=== PATIENT | male | born 1950 | race Caucasian/White ===

== ENCOUNTER 2017-11-19 09:56 | Day surgery (SDC) | payer OTHER ==
[~2017-11-19] VITALS: Ht 180.3 cm; Wt 94.3 kg
[~2017-11-19 09:56] MED LIST: COUMADIN5 MG PO; DECADRON2 MG PO; DIOVAN160 MG PO; KEPPRA500 MG PO; MOTRIN600 MG PO; OMEGA 3-6-9 11200 MG PO
== END 2017-11-19 12:40 | disposition home or self-care (01) ==
LOC: CATH 09:56
PROC: 06H03DZ Insertion of Intraluminal Device into Inferior Vena Cava, Percutaneous Approach (ICD-10-PCS; principal; 2017-11-19)
DX: I82.519 Chronic embolism and thrombosis of unspecified femoral vein (principal); Z86.711 Personal history of pulmonary embolism; D49.6 Neoplasm of unspecified behavior of brain; I12.9 Hypertensive chronic kidney disease with stage 1 through stage 4 chronic kidney disease, or unspecified chronic kidney disease; N18.9 Chronic kidney disease, unspecified; E78.00 Pure hypercholesterolemia, unspecified; L93.0 Discoid lupus erythematosus; Z86.73 Personal history of transient ischemic attack (TIA), and cerebral infarction without residual deficits; Z79.01 Long term (current) use of anticoagulants
CPT/HCPCS: C1769; C1894; J0690; J1644; J2250; J3010

== ENCOUNTER 2017-11-22 22:14 | Inpatient (IN) | payer OTHER ==
[~2017-11-22] VITALS: Ht 180.3 cm; Wt 93.6 kg
[2017-11-23 06:58] VITALS: BP 168/78
[2017-11-23 07:52] LABS: INTER. NORMALIZED RATIO 1.1
[2017-11-23 20:18] VITALS: BP 144/81
[2017-11-23 21:00] VITALS: BP 127/69
[2017-11-23 22:00] VITALS: BP 138/71
[2017-11-23 23:00] VITALS: BP 139/69
[2017-11-24] VITALS (22 sets, daily range): BP systolic 127–160; BP diastolic 60–95
[2017-11-25] VITALS (15 sets, daily range): BP systolic 126–178; BP diastolic 65–103
[2017-11-25 09:32] LABS: CHLORIDE 106 MEQ/L (99-109); POTASSIUM 4.1 MEQ/L (3.7-5.4); SODIUM 137 MEQ/L (136-147)
[2017-11-25 09:38] LABS: CREATININE 0.8 MG/DL (0.6-1.3); GFR ESTIMATE (CALCULATED) > 59 mL/min/ (58.99-99999); GLUCOSE 117 mg/dL (70-99); UREA NITROGEN (BUN) 24 mg/dL (9-23)
[2017-11-26] VITALS (7 sets, daily range): BP systolic 126–156; BP diastolic 66–79
[2017-11-27 08:33] VITALS: BP 162/79
[2017-11-27 10:25] VITALS: BP 158/82
[2017-11-27] MEDS ORDERED: HYDROCODON-ACE1 EAC7 PO (13:12)
[2017-11-27] MEDS ORDERED: LEVETIRACETAM500 MG PO (13:12)
[2017-11-27] MEDS ORDERED: DEXAMETHASONE4 MG PO (13:12)
== END 2017-11-27 14:26 | disposition home or self-care (01) | DRG 26 ==
LOC: ENRESERV 22:14 → 2SOUTH 11-23 06:36 → 3EAST 11-23 06:36 → 2SOUTH 11-23 08:00 → ENRESERV 11-23 17:00 → 4WEST 11-23 20:07 → ENRESERV 11-25 13:07 → 3EAST 11-25 16:46
PROVIDERS: Neurological Surgery; Physician Assistant Medical
DX: C71.1 Malignant neoplasm of frontal lobe (principal); N04.1 Nephrotic syndrome with focal and segmental glomerular lesions; R47.01 Aphasia; M32.14 Glomerular disease in systemic lupus erythematosus; M32.9 Systemic lupus erythematosus, unspecified; K21.9 Gastro-esophageal reflux disease without esophagitis; I10 Essential (primary) hypertension; E78.5 Hyperlipidemia, unspecified; E78.00 Pure hypercholesterolemia, unspecified; E11.9 Type 2 diabetes mellitus without complications; G43.909 Migraine, unspecified, not intractable, without status migrainosus; Z86.711 Personal history of pulmonary embolism; Z79.01 Long term (current) use of anticoagulants; Z87.442 Personal history of urinary calculi
CPT/HCPCS: 70450; 70553; 77021; 80048; 85610; 86850; 86900; 86901; 87641; 88307; 88341 TC; 94640; C1713; J0330; J0690; J1100; J1170; J2250; J2270; J2405; J3010; J3480; J8540